=== PATIENT | male | born 1945 | race Caucasian/White ===

== ENCOUNTER 2017-01-20 09:20 | Day surgery (SDC) | payer MEDICARE, OTHER ==
--- NOTE | ~2017-01-20 | EGD ---
EGD REPORT [facility] [address] [address] NAME: JAVI JACOBSEN : [birth year] STATUS : REG [facility]#: [id number] AGE: 71 ADM/REG DATE : 01/20/17 MR#: [id number] REPORT SERV DATE: 01/20/17 DICTATED BY: YANETH FLORES DATE: 01/20/17 REPORT STATUS : Draft TRANSCRIBED BY: [facility] DATE: 01/20/17 Endoscopy Center Patient Name: Javi Jacobsen Date of : 1945 Attending MD: YANETH FLORES MD Procedure Date No Time: 01/20/2017 Procedure: Colonoscopy Indications: High risk colon cancer surveillance: Personal history of colonic polyps Referring MD: NAVID FRANKLIN MD Medicines: as per anesthesia Complications: No immediate complications. Procedure: Pre-Anesthesia Assessment: - ASA Grade Assessment: III - A patient with severe systemic disease. After I obtained informed consent, the scope was passed under direct vision. Throughout the procedure, the patient's blood pressure, pulse, and oxygen saturations were monitored continuously. The PCF [id number] was introduced through the anus and advanced to the cecum, identified by appendiceal orifice and ileocecal valve. The colonoscopy was performed without difficulty. The patient tolerated the procedure. The quality of the bowel preparation was adequate to identify polyps. Findings: The perianal and digital rectal examinations were normal. A sessile polyp was found in the transverse colon. The polyp was 3 mm in size. The polyp was removed with a cold biopsy forceps. Resection and retrieval were complete. A few small and large-mouthed diverticula were found in the sigmoid colon. Internal hemorrhoids were found during endoscopy and were mild. Impression: - One 3 mm polyp in the transverse colon. Resected and retrieved. - Diverticulosis in the sigmoid colon. - Internal hemorrhoids. Recommendation: - Await pathology results. - Repeat colonoscopy for surveillance based on pathology results. Procedure Code(s): --- Professional --- 63559, Colonoscopy, flexible, proximal to splenic EGD REPORT [facility] [address] [place]. [address] NAME: JAVI JACOBSEN : [birth year] STATUS : REG [facility]#: [id number] AGE: 71 ADM/REG DATE : 01/20/17 MR#: [id number] REPORT SERV DATE: 01/20/17 DICTATED BY: YANETH FLORES DATE: 01/20/17 REPORT STATUS : Draft TRANSCRIBED BY: [employer] DATE: 01/20/17 flexure; with biopsy, single or multiple Diagnosis Code(s): --- Professional --- D12.3, Benign neoplasm of transverse colon K64.8, Other hemorrhoids K57.30, Diverticulosis of large intestine without perforation or abscess without bleeding Z86.010, Personal history of colonic polyps CPT copyright 2013 [employer]. All rights reserved. The codes documented in this report are preliminary and upon embedded case manager review may be revised to meet current compliance requirements. YANETH FLORES MD 01/20/2017 12:22 PM This report has been signed electronically. Number of Addenda: 0 Note Initiated On: 01/20/2017 11:40 AM Scope Withdrawal Time 0 hours 7 minutes 15 seconds [address] [place] [address]
[~2017-01-20 09:20] MED LIST: ACCU20 PO; ASAB PO; C5 PO; CIALIS5 MG PO; GARLIC PO; GARLIQUE PO; JANTOVEN2.5 MG PO; KLOR-CON M2020 MEQ PO; LIPITOR20 PO; MULTIVITAMI1 PO; NIASPAN500 PO; NORV25 PO; PCET PO; RYTHMOL150 MG PO; VITC500 PO
[2017-01-20 11:15] LABS: INTERNATIONAL NORMAL RATI 1.4 UNITS (-)
[2017-01-20 11:17] LABS: PROTIME (NOT ORD) 16.9 SEC (12.0-14.5)
== END 2017-01-20 23:59 | disposition home or self-care (01) ==
LOC: DMU 09:20
PROVIDERS: Anesthesiology; Internal Medicine Gastroenterology
PROC: 0DBL8ZX Excision of Transverse Colon, Via Natural or Artificial Opening Endoscopic, Diagnostic (ICD-10-PCS; principal; 2017-01-20 10:30)
DX: Z12.11 Encounter for screening for malignant neoplasm of colon (principal); D12.3 Benign neoplasm of transverse colon; K64.8 Other hemorrhoids; K57.30 Diverticulosis of large intestine without perforation or abscess without bleeding; I48.91 Unspecified atrial fibrillation; M19.90 Unspecified osteoarthritis, unspecified site; E78.00 Pure hypercholesterolemia, unspecified; I47.2 Ventricular tachycardia; Z88.0 Allergy status to penicillin; Z86.010 Personal history of colon polyps; Z98.52 Vasectomy status; Z98.890 Other specified postprocedural states
CPT/HCPCS: 85610; 88305